=== PATIENT | female | born 1985 | race Caucasian/White ===

== ENCOUNTER 2023-04-17 11:41 | Emergency (ER) | payer BC ==
[2023-04-17] MEDS ORDERED: Ondansetron ODT 4 MG TAB ONE (14:17)
[2023-04-17 14:27] LABS: SARS-CoV-2 NAA Rapid Test Not Detected (NotDetected)
[2023-04-17] MEDS ORDERED: Ibuprofen 800 MG TAB ONE (15:16)
[2023-04-17 15:57] LABS: Bacteria/HPF 3+ HPF (None Seen); Bilirubin Negative (Negative); Blood, Urine Negative (Negative); CAUTI Indications for Culture Pelvic or flank pain; Clarity Clear (Clear); Glucose, Urine (Dipstick) 30 mg/dL (Negative); Ketone, Urine 40 mg/dL (Negative); Leukocyte Negative Leu/uL (Negative); Nitrite Negative (Negative); Protein, Urine (Dipstick) 50 mg/dL (Neg-Trace); Urobilinogen Normal mg/dL (Less than 2); WBC/HPF 0-3 HPF (0-3)
[2023-04-17 15:59] LABS: Urine Culture Reflex No No
== END 2023-04-17 16:46 | disposition home or self-care (01) ==
LOC: ERS 11:41
DX: J06.9 Acute upper respiratory infection, unspecified (principal); R11.2 Nausea with vomiting, unspecified; I10 Essential (primary) hypertension; E11.9 Type 2 diabetes mellitus without complications; Z79.899 Other long term (current) drug therapy; Z79.84 Long term (current) use of oral hypoglycemic drugs
CPT/HCPCS: 81001; 99284; Q0162